=== PATIENT | female | born 1990 ===

== ENCOUNTER 2021-05-04 17:27 | Emergency (ER) | payer BC ==
--- NOTE | 2021-05-04 18:07 | EDM.PDOC ---
ED HPI GENERAL MEDICAL PROBLEM - General Chief Complaint: Laceration Stated Complaint: fish hook Time Seen by Provider: 05/04/21 17:40 Source of Information: Reports: Patient History Limitations: Reports: No Limitations - History of Present Illness INITIAL COMMENTS - FREE TEXT/NARRATIVE: This patient presents to the emergency department for removal of a foreign body. She has a fishhook caught into her right forearm. She denies other injuries or concerns. Onset: Today Right Wrist Pain Score (Numeric/FACES): 3 - Related Data Allergies Allergy/AdvReac Type Severity Reaction Status Date / Time No Known Allergies Allergy Verified 05/04/21 17:28 Past Medical History - Past Health History Medical/Surgical History: Denies Medical/Surgical History Social & Family History - Tobacco Use Tobacco Use Status *Q: Never Tobacco User ED ROS GENERAL - Review of Systems Review Of Systems: Comprehensive ROS is negative, except as noted in HPI. Skin: Reports: Lesions ED EXAM, SKIN/RASH Exam: See Below ED SKIN PROCEDURES - Foreign Body Removal Consent Obtained:: Patient Anesthesia Type: Local Anesthesia Other:: 1 mL1% lidocaine without epi used intradermally Findings:: The hook was cut and pushed through. A small stab wound was made with #11 blade to facilitate removal. Complications:: No Course - Re-Assessments/Exams Free Text/Narrative Re-Assessment/Exam: 05/04/21 18:03 This patient presents for evaluation of foreign body in her arm. A fishhook was successfully removed. Please see procedure note. There were no signs off abscess, cellulitis, necrotizing fasciitis or penetration of vascular or nerve structures. The wound was cleaned with Hibiclens, covered with bacitracin and a sterile dressing. The patient was much more comfortable following the removal. She will follow-up with her primary care provider as needed. Departure - Departure Time of Disposition: 18:02 Disposition: Home, Self-Care 01 Condition: Good Clinical Impression: Foreign body (FB) in soft tissue - Discharge Information *PRESCRIPTION DRUG MONITORING PROGRAM REVIEWED*: Not Applicable *COPY OF PRESCRIPTION DRUG MONITORING REPORT IN PATIENT PRABHJOT: Not Applicable Forms: ED Department Discharge Additional Instructions: Wash with soap and water twice daily, monitor closely for infection. Apply antibiotic ointment and a bandage to site. Sepsis Event Note (ED) - Evaluation Sepsis Screening Result: No Definite Risk
== END 2021-05-04 18:00 | disposition home or self-care (01) ==
LOC: LB.ED 17:27
DX: S50.851A Superficial foreign body of right forearm, initial encounter (principal); W45.8XXA Other foreign body or object entering through skin, initial encounter
CPT/HCPCS: 10120; 99282-25